=== PATIENT | female | born 1955 | race Caucasian/White ===

== ENCOUNTER → 2024-02-04 14:37 | Outpatient (REF) | payer MEDICARE, OTHER, SELFPAY | LOC: HWWDC 14:37 | PROVIDERS: ATTENDING PHYSICIAN Internal Medicine | DX: Z12.31 Encounter for screening mammogram for malignant neoplasm of breast (principal) | CPT/HCPCS: 77063; 77067 ==

== ENCOUNTER → 2025-01-14 18:18 | Emergency (ER) | payer OTHER, SELFPAY ==
[2025-01-14 18:24] VITALS: BP 150/102
[2025-01-14 18:55] LABS: Hematocrit 42.9 % (37.0-47.0); Hemoglobin 14.9 g/dL (12.0-16.0); Mean Corp Hgb Conc. 34.7 g/dL (33.0-37.0); Mean Corpuscular Volume 92.3 fL (81.0-99.0); Mean Platelet Volume 9.5 fL (7.4-10.4); Platelet Count 177 10^3/uL (130-400); Red Blood Cell Count 4.65 10^6/uL (4.20-5.40); Red Cell Dist. Width 12.7 % (11.5-14.5); White Blood Cell Count 7.7 10^3/uL (4.8-10.8)
[2025-01-14 19:00] LABS: ALT (SGPT) 23 U/L (0-35); AST (SGOT) 25 U/L (14-36); Albumin 4.8 g/dl (3.5-5.0); Alkaline Phosphatase 97 U/L (38-126); Blood Urea Nitrogen 21 mg/dl (7-17); Calcium 9.7 mg/dl (8.4-10.2); Carbon Dioxide 23 mmol/L (22-30); Chloride 107 mmol/L (98-107); Glucose 120 mg/dl (70-99); Potassium 4.3 mmol/L (3.5-5.1); Sodium 140 mmol/L (135-145); Total Bilirubin 0.5 mg/dl (0.2-1.3); Total Protein 7.2 g/dl (6.3-8.2); eGFR > 60.00
[2025-01-14 19:01] LABS: Lipase 266 U/L (23-300)
[2025-01-14 19:07] VITALS: BP 159/77
[2025-01-14 19:07] LABS: Troponin I < 0.012 ng/ml
[2025-01-14 19:18] LABS: Absolute Neutrophils -Man Diff 2.3 10^3/uL (1.4-6.5); Atypical Lymphocytes 11 %; Band Neutrophils 0 % (0-3); Eosinophils 3 % (0-6); Lymphocytes 47 % (20-51); Monocytes 8 % (2-9); Normal RBC Morphology Yes; Platelets Checked Yes; Segmented Neutrophils 31 % (42-75); Total Cells Counted 100
--- NOTE | 2025-01-14 19:27 | ED.GENMED ---
History of Present Illness
General
Chief Complaint: Chest Pain
Source: patient
Exam Limitations: none
Time Seen by Provider: 01/14/25 19:25
Nursing documentation reviewed up to this point in time: agreed with
History of Present Illness
History of Present Illness:
This is a 69-year-old female with a past medical history of hyperlipidemia who presents emergency department today with concerns of a transient episode of chest tightness and around 6:30 PM today. Patient reports that she was preparing dinner for
her when she started to feel pressure in her chest, nauseated, and shaky. Patient reports that this time, she felt a sense of impending doom. She denies any presyncopal symptoms or dizziness. She denies any fevers or chills. She denies
any cough or upper respiratory symptoms. This never happened to her before. Patient reports that the episode lasted around 25 minutes. Currently, patient is chest pain free and feels well and feels back to her baseline. Patient has no family
history of cardiac disease. Patient does not use tobacco products. Patient has no personal history of cardiac disease, she is not currently follow with a basic acoustic analyst.
Review of Systems
Review of Systems
All Other Systems: ROS reviewed and negative except as documented in HPI and ROS
Phy Exam
Physical Exam
Physical Exam:
General: Patient is well appearing and in no acute distress; non-toxic
Skin: Warm and dry, no rashes or lesions
Head: Normocephalic, atraumatic
Eyes: Sclera non-icteric. EOMs intact.
Cardiac: Regular rate and rhythm, no murmurs, no tenderness palpation over the external chest wall
Peripheral Vascular: No lower extremity swelling or edema
Pulm: Normal respiratory effort, no wheezes, rales, rhonchi
Abdomen: No epigastric abdominal tenderness
Neuro: CN II-XII intact, no focal neurologic deficits.
Psychiatric: Appropriate mood and affect.
Scores
Heart Score for Chest Pain Patients
STEMI patient?: No
History: Moderately Suspicious
ECG: Normal
Age: >/= 65 years
Risk Factors: 1 or 2 Risk Factors
Troponin: </= Normal Limit
Heart Score for Chest Pain Patients: 4
Heart Score Risk: 20.3% MACE over next 6 weeks
Course
Orders/Labs/Results
Orders:
Orders
01/14/25 18:19
Electrocardiogram (*1) Urgent
Reason for Study: Chest Pain
EKG- Treatment ONCE
01/14/25 18:34
Complete Blood Count/With Diff Urgent
Comprehensive Metabolic Panel Urgent
Lipase Urgent
Manual Differential Urgent
Troponin I Urgent
01/14/25 19:38
CR Chest - 2 Views Urgent
Comment:
Reason For Exam: chest pain
01/14/25 21:33
Troponin I Urgent
01/14/25 21:34
Electrocardiogram (*1) Urgent
Reason for Study: Chest Pain
Abnormal Lab Results
01/14/25
18:34
MCH 32.0 H pg
(27.0-31.0)
Segmented Neutrophils 31 L %
(42-75)
BUN 21 H mg/dl
(7-17)
Glucose 120 H mg/dl
(70-99)
01/14/25 18:34
01/14/25 18:34
Vital Signs
Initial and Last Documented VS:
Initial Vital Signs
Temp Pulse Resp BP Pulse Ox
98.1 F 94 18 150/102 97
01/14/25 18:24 01/14/25 18:24 01/14/25 18:24 01/14/25 18:24 01/14/25 18:24
Last Documented Vital Signs
Temp Pulse Resp BP Pulse Ox
98.1 F 69 23 137/84 95
01/14/25 18:24 01/14/25 21:30 01/14/25 21:30 01/14/25 21:00 01/14/25 21:15
MDM/Problems Addressed
Differential Diagnosis Includes:
ACS, costochondritis, GERD, anxiety, pneumothorax
MDM/Problems Addressed:
This is a 69-year-old female with a past medical history of hyperlipidemia who presents emergency department today with concerns of a transient episode of chest tightness and around 6:30 PM today. Patient reports that she was preparing dinner for
her when she started to feel pressure in her chest, nauseated, and shaky. This has resolved and she has not had any further episodes pain at home or in the emergency department. She has no family personal history of cardiac disease. She
had 2 troponins which were undetectable and 2 EKGs which demonstrated normal sinus rhythm with no ischemic changes. CBC and CMP are unremarkable. Doubt ACS. Unclear etiology to patient's episode symptoms at this time however did stress that in
light of the patient's age and history of hyperlipidemia, is probably a good idea to see a basic acoustic analyst. Chest x-ray does not show any evidence of pneumonia or medical opacity. Patient stable for discharge. Reviewed case with my attending.
Chronic conditions affecting care:
hlp
*Pulse Oximetry
Patient hypoxic: no
*Critical Care Note
Total Time (30-74mins, 75-104mins- exclusive of procedures): Not Applicable
Data Reviewed
Review of Other/Old Records Reveals: Records (No previous ER physician documentation to review, no discharge summaries to review)
ED Attending Note
-
Portions of this chart may have been created with voice recognition software.� Occasional wrong word or��sound alike� substitutions may have occurred due to the inherent limitations of voice recognition software.
Discharge Plan
Departure
Patient Disposition: Home (Routine Discharge)
Date of Disposition: 01/14/25
Time of Disposition: 22:37
Patient with high blood pressure during this ER visit?: Yes
Condition: Good
Discharge Problem:
Chest pain
Instructions: Chest pain, BLOOD PRESSURE
Referrals:
Joe Stuart MD [Active] - Call in 1-3 days for appt
Marifer Lemos MD [Family Provider] -
Activity Restrictions/Additional Instructions:
As discussed, please consider seeing a basic acoustic analyst for further evaluation
Your repeat EKG and troponin showed normal sinus rhythm and your repeat EKG showed normal sinus rhythm and your repeat troponin was undetectable.
PLEASE RETURN EMERGENCY DEPARTMENT SHOULD YOU DEVELOP CHEST PAIN, SHORTNESS OF BREATH, FAINTING SPELLS, DIZZINESS, LIGHTHEADEDNESS, INTRACTABLE NAUSEA VOMITING, FEVERS OR CHILLS, CHEST PAIN OR SHORTNESS OF BREATH, OR ANY OTHER SIGNS OR SYMPTOMS
WORRISOME TO YOU.
Interventions
Interventions:
*Risk Screen - Suicide Last Done: 01/14/25 18:24
*General Assessment Last Done: 01/14/25 18:24
*Neglect/Abuse Screening Last Done: 01/14/25 18:24
*ED- Fall Risk Assessment Last Done: 01/14/25 19:45
*ED COVID-19 Vaccine History Last Done: 01/14/25 18:24
*Nursing Disposition Last Done: 01/14/25 22:37
ED- Cardiac Assessment Last Done: 01/14/25 19:45
Discharge Date and Time
Print Language: SLOVENIAN
[2025-01-14 19:42] VITALS: BMI 31.3
[2025-01-14 20:04] VITALS: BP 157/78
[2025-01-14 21:00] VITALS: BP 137/84
[2025-01-14 22:04] LABS: Troponin I < 0.012 ng/ml
== END | disposition home or self-care (01) ==
LOC: EMR 18:18
PROVIDERS: Physician Assistant; Student in an Organized Health Care Education/Training Program; EMERGENCY PHYSICIAN Emergency Medicine; FAMILY PHYSICIAN Internal Medicine
DX: R07.89 Other chest pain (principal); E78.00 Pure hypercholesterolemia, unspecified
CPT/HCPCS: 99283; 71046; 80053; 83690; 84484; 85025; 93005

== ENCOUNTER → 2025-02-10 07:59 | Outpatient (REF) | payer OTHER, SELFPAY | LOC: HWWDC 07:59 | PROVIDERS: ATTENDING PHYSICIAN Internal Medicine | DX: Z12.31 Encounter for screening mammogram for malignant neoplasm of breast (principal) | CPT/HCPCS: 77063; 77067 ==

== ENCOUNTER 2025-09-20 06:27 | Day surgery (SDC) | payer OTHER, SELFPAY | END 2025-09-20 13:43 | disposition home or self-care (01) | LOC: GI 06:27 | PROVIDERS: ATTENDING PHYSICIAN Internal Medicine Gastroenterology | DX: K57.30 Diverticulosis of large intestine without perforation or abscess without bleeding (principal); Z12.11 Encounter for screening for malignant neoplasm of colon; Z86.0100 Personal history of colon polyps, unspecified; D12.8 Benign neoplasm of rectum; D12.4 Benign neoplasm of descending colon; K62.1 Rectal polyp | CPT/HCPCS: 45380; 88305 ==